=== PATIENT | female | born 1995 | race Caucasian/White ===

== ENCOUNTER → 2022-05-07 | Outpatient (CLI) | payer BC ==
[2022-05-07 12:00] LABS: HEMATOCRIT 41.2 % (36.0-47.0); HEMOGLOBIN 13.6 g/dl (12.0-15.5); MEAN CORPUSCULAR HEMOGLOBIN 31.8 pg (27.0-33.0); MEAN CORPUSCULAR VOLUME 96.3 fl (80.0-96.0); PLATELET COUNT, AUTOMATED 207 10^3/uL (150-450); RED BLOOD COUNT 4.28 10^6/uL (4.00-5.40); WHITE BLOOD COUNT 8.2 10^3/uL (4.0-10.0)
[2022-05-07 13:12] LABS: HEPATITIS C VIRUS ABY INDEX < 0.0 INDEX (<0.8); HIV 1&2 SCREEN CENTAUR NEGATIVE (NEGATIVE)
== END ==
LOC: M PLALAB 09:55
PROVIDERS: ATTEND Advanced Practice Midwife
DX: Z34.01 Encounter for supervision of normal first pregnancy, first trimester (principal)

== ENCOUNTER → 2022-06-17 | Outpatient (CLI) | payer BC, SELFPAY | LOC: M WHC 07:35 | PROVIDERS: ATTEND Specialist | DX: Z34.82 Encounter for supervision of other normal pregnancy, second trimester (principal) ==

== ENCOUNTER → 2022-08-06 | Outpatient (CLI) | payer BC ==
[2022-08-06 10:35] LABS: HEMATOCRIT 38.4 % (36.0-47.0); HEMOGLOBIN 12.4 g/dl (12.0-15.5); MEAN CORPUSCULAR HEMOGLOBIN 32.6 pg (27.0-33.0); MEAN CORPUSCULAR HGB CONC 32.3 g/dl (32.0-36.5); MEAN CORPUSCULAR VOLUME 101.1 fl (80.0-96.0); PLATELET COUNT, AUTOMATED 200 10^3/uL (150-450); WHITE BLOOD COUNT 9.8 10^3/uL (4.0-10.0)
[2022-08-06 12:09] LABS: GC DNA AMPLIFICATION NEGATIVE (NEGATIVE)
== END ==
LOC: M PLALAB 07:52
PROVIDERS: ATTEND Specialist
DX: Z34.82 Encounter for supervision of other normal pregnancy, second trimester (principal)

== ENCOUNTER → 2022-10-14 | Outpatient (REF) | payer BC | LOC: M PLALAB 09:16 | PROVIDERS: ATTEND Advanced Practice Midwife | DX: Z34.80 Encounter for supervision of other normal pregnancy, unspecified trimester (principal) ==

== ENCOUNTER → 2022-10-15 | Outpatient (CLI) | payer BC | LOC: M WHC 12:02 | PROVIDERS: ATTEND Obstetrics & Gynecology | DX: O26.843 Uterine size-date discrepancy, third trimester (principal); Z3A.36 36 weeks gestation of pregnancy ==

== ENCOUNTER → 2024-02-29 | Outpatient (REF) | payer BC ==
[~2024-02-29] MED LIST: PRENTAB9 PO
== END ==
LOC: M SFHCWAGY 17:43
PROVIDERS: ATTEND Nurse Practitioner Family
DX: Z12.4 Encounter for screening for malignant neoplasm of cervix (principal); R87.615 Unsatisfactory cytologic smear of cervix
CPT/HCPCS: 87624; G0123

== ENCOUNTER 2024-05-11 17:59 | Emergency (ER) | payer OTHER, BC ==
[2024-05-11] MEDS ORDERED: EPINEPHrine 1MG/10ML SYRINGE 1.5IN ONE (18:00)
[2024-05-11] MEDS: SUCCINYLCHOLINE INJ 200MG/10ML VIAL IV STA (18:02)
[2024-05-11] MEDS: ETOMIDATE INJ 20MG/10ML VIAL IV ONE (18:02)
[2024-05-11] MEDS ORDERED: MIDAZOLAM INJ 2MG/2ML VIAL As Ordered ONE (18:07)
[2024-05-11] MEDS ORDERED: PROPOFOL 1,000 MG/100 ML VIAL As Ordered ONE (18:09)
[2024-05-11] MEDS: MIDAZOLAM 5MG/ML 1ML VIAL IV ONE (18:10)
[2024-05-11] MEDS ORDERED: TRANEXAMIC ACID 100 MG/ML 10ML VIAL As Ordered ONE (18:14)
[2024-05-11] MEDS ORDERED: TRANEXAMIC ACID INJection 1,000 MG in NS 100 ML IV ONE (18:15)
[2024-05-11] MEDS ORDERED: fentaNYL 100 MCG/2 ML INJECTION As Ordered ONE (18:18)
[2024-05-11] MEDS: fentaNYL 100 MCG/2 ML INJECTION IV PRN (18:19)
[2024-05-11] MEDS: TRANEXAMIC ACID INJection 1,000 MG in NS 100 ML IV ONE (18:25)
[2024-05-11] MEDS: NOREPINEPHRINE 4MG IN D5 250ML 4 MG in IV 1 EA IV SCH (18:29)
[2024-05-11 18:32] LABS: HEMATOCRIT 31.8 % (36.0-47.0); HEMOGLOBIN 9.8 g/dl (12.0-15.5); MEAN CORPUSCULAR HEMOGLOBIN 31.6 pg (27.0-33.0); MEAN CORPUSCULAR HGB CONC 30.8 g/dl (32.0-36.5); MEAN CORPUSCULAR VOLUME 102.6 fl (80.0-96.0); PLATELET COUNT, AUTOMATED 213 10^3/uL (150-450); WHITE BLOOD COUNT 17.4 10^3/uL (4.0-10.0)
[2024-05-11] MEDS: CALCIUM GLUCONATE 1,000MG/10ML VIAL (100MG/ML) IV ONE (18:35)
[2024-05-11] MEDS: MIDAZOLAM INJ 2MG/2ML VIAL IV PRN (18:35)
[2024-05-11] MEDS: SODIUM BICARBONATE 8.4% INJ 50ML SYRINGE IV STA (18:39)
[2024-05-11 18:50] LABS: INR 2.09; PROTHROMBIN TIME 22.7 SECONDS (12.5-14.5)
[2024-05-11 18:52] LABS: CK-MB VALUE MASS 16.8 NG/ML (<3.6); LIPASE 164 U/L (12-53)
[2024-05-11 18:54] LABS: AMYLASE 144 U/L (30-118)
[2024-05-11] MEDS ORDERED: ISOVUE-370 76% 100ML VIAL As Ordered ONE (18:58)
[2024-05-11] MEDS: CALCIUM GLUCONATE 1,000 MG in D5W MINI-BAG PLUS 100 ML IV ONE ×3 (19:00→19:40)
[2024-05-11] MEDS ORDERED: VASOPRESSIN INJ 20UNITS/ML 1ML VIAL As Ordered ONE (19:02)
[2024-05-11] MEDS: NS 1,000 ML IV ONE (19:07)
[2024-05-11 19:10] LABS: ALBUMIN 2.6 G/DL (3.2-5.2); ALKALINE PHOSPHATASE 71 U/L (46-116); ALT/SGPT 491 U/L (7.0-40); AST/SGOT 1000.00001 U/L (<34); BILIRUBIN,DIRECT < 0.1 MG/DL (<0.4); BILIRUBIN,TOTAL 0.2 MG/DL (0.3-1.2); BLOOD UREA NITROGEN 19 MG/DL (9-23); CALCIUM LEVEL 7.2 MG/DL (8.5-10.1); CARBON DIOXIDE LEVEL 14 MMOL/L (20-31); CHLORIDE LEVEL 107 MMOL/L (98-107); CPK CREATINE PHOSPHOKINASE 675 U/L (34-145); GLOMERULAR FILTRATION RATE 47.3 (>60); GLUCOSE, FASTING 320 MG/DL (60-100); MB/CK RELATIVE INDEX 2.48 (< OR =4); POTASSIUM SERUM 5.2 MMOL/L (3.5-5.1); SODIUM LEVEL 138 MMOL/L (136-145); TOTAL PROTEIN 4.4 G/DL (5.7-8.2)
[2024-05-11] MEDS: VASOPRESSIN INJ 20 UNITS in NS 499 ML IV SCH (19:14)
[2024-05-11] MEDS ORDERED: BOOSTRIX VACCINE (TETANUS/DIPHTH/ACEL. PERTUSSIS) 0.5ML SYR IM.IMMUN ONE (19:15)
[2024-05-11] MEDS ORDERED: ceFAZolin SOD 1 GM in D5W MINI-BAG PLUS 50 ML IV ONE (19:30)
[2024-05-11 19:35] LABS: HCG, SERUM QUALITATIVE NEGATIVE (NEGATIVE)
[2024-05-11 19:50] LABS: ABG BASE EXCESS -12.8 (-2.0-2.0); ABG HCO3 17.1 MMOL/L (22.0-26.0); ABG O2 SATURATION 96.4 % (95.0-99.0); ABG PARTIAL PRESSURE CO2 58.2 mmHg (35.0-45.0); ABG PARTIAL PRESSURE O2 101.7 mmHg (75.0-100.0); ABG STANDARD HCO3 14.4 MMOL/L. (22.0-26.0); ABG TOTAL CO2 18.8 MMOL/L (22.0-29.0)
[2024-05-11 19:52] LABS: ABG pH (ARTERIAL) 7.085 UNITS (7.350-7.450)
[2024-05-11] MEDS: MIDAZOLAM 100MG/100ML-0.9%NACL 100 MG in IV 1 EA IV SCH (19:54)
[2024-05-11] MEDS: NS 1,000 ML IV SCH (20:09)
[2024-05-11 20:58] VITALS: BP 81/46; TEMP 96.8; O2SAT 97
[2024-05-12 14:35] LABS: HEPATITIS B SURFACE ANTIGEN NEGATIVE (NEGATIVE)
[2024-05-12 14:47] LABS: HIV SCREEN CENTAUR SOURCE NEGATIVE (NEGATIVE)
== END 2024-05-11 20:44 | disposition short-term general hospital (02) ==
LOC: M ED 17:59
DX: S22.5XXA Flail chest, initial encounter for closed fracture (principal); S27.2XXA Traumatic hemopneumothorax, initial encounter; S32.038A Other fracture of third lumbar vertebra, initial encounter for closed fracture; R31.9 Hematuria, unspecified; V20.1 Motorcycle passenger injured in collision with pedestrian or animal in nontraffic accident; S12.600A Unspecified displaced fracture of seventh cervical vertebra, initial encounter for closed fracture; S22.019A Unspecified fracture of first thoracic vertebra, initial encounter for closed fracture; S22.029A Unspecified fracture of second thoracic vertebra, initial encounter for closed fracture; S22.039A Unspecified fracture of third thoracic vertebra, initial encounter for closed fracture; S22.049A Unspecified fracture of fourth thoracic vertebra, initial encounter for closed fracture; S22.069A Unspecified fracture of T7-T8 vertebra, initial encounter for closed fracture; S32.019A Unspecified fracture of first lumbar vertebra, initial encounter for closed fracture; S32.029A Unspecified fracture of second lumbar vertebra, initial encounter for closed fracture; S32.049A Unspecified fracture of fourth lumbar vertebra, initial encounter for closed fracture; S42.102A Fracture of unspecified part of scapula, left shoulder, initial encounter for closed fracture; J96.01 Acute respiratory failure with hypoxia; M51.36 Other intervertebral disc degeneration, lumbar region; M48.062 Spinal stenosis, lumbar region with neurogenic claudication; J45.909 Unspecified asthma, uncomplicated; Z79.899 Other long term (current) drug therapy; Y99.9 Unspecified external cause status; Y92.410 Unspecified street and highway as the place of occurrence of the external cause; Y93.89 Activity, other specified
CPT/HCPCS: 31500; 32551; 36430; 36556; 36600; 36620; 70450; 70486; 71045; 71260; 72125; 72128; 72131; 74177; 80048; 80076; 82077; 82150; 82550; 82553; 82803; 83605; 83690; 84484; 84703; 85027; 85610; 85730; 86803; 86850; 86900; 86901; 86920; 86927; 87340; 87389; 90715; 93005; 96365; 96366; 96375; 96376; 99291; 99292; G0390; J0171; J0330; J0612; J2250; J2598; P9016; P9017; Q9967

== ENCOUNTER → 2025-08-19 | Outpatient (CLI) | payer BC | LOC: M WHC 08:36 | PROVIDERS: ATTEND Advanced Practice Midwife | DX: Z36.89 Encounter for other specified antenatal screening (principal) ==

== ENCOUNTER → 2025-09-26 | Outpatient (CLI) | payer BC | LOC: M WHC 08:58 | PROVIDERS: ATTEND Advanced Practice Midwife | DX: Z34.82 Encounter for supervision of other normal pregnancy, second trimester (principal); Z3A.23 23 weeks gestation of pregnancy ==

== ENCOUNTER → 2025-10-09 | Outpatient (CLI) | payer BC ==
[2025-10-09 13:27] LABS: PLATELET COUNT, AUTOMATED 222 10^3/uL (150-450)
[2025-10-09 13:59] LABS: HIV 1&2 SCREEN NEGATIVE (NEGATIVE)
[2025-10-09 14:06] LABS: HEPATITIS C VIRUS ABY INDEX 0.04 INDEX (<0.8)
[2025-10-09 15:43] LABS: Trichomonas vaginalis (AMP) NOT DETECTED (NEGATIVE)
[2025-10-09 16:06] LABS: GC DNA AMPLIFICATION NEGATIVE (NEGATIVE)
== END ==
LOC: M PLALAB 09:12
PROVIDERS: ATTEND Advanced Practice Midwife
DX: Z34.82 Encounter for supervision of other normal pregnancy, second trimester (principal)
CPT/HCPCS: 36415; 82950; 85027; 86780; 86803; 86850; 86900; 86901; 87389; 87661; 87810; 87850; G0463